=== PATIENT | female | born 1950 | race Caucasian/White ===

== ENCOUNTER 2022-03-23 14:49 | Observation (INO) | payer OTHER ==
[2022-03-23 15:09] VITALS: BMI 27.4
[2022-03-23 16:23] LABS: BASO % 0.7 % (0-2.0); HEMATOCRIT 35.8 % (32.4-45.2); HEMOGLOBIN 12.2 GM/dL (10.7-15.3); LYMPH % 30.2 % (8-40); MCH 30.8 pg (25.7-33.7); MEAN CELL VOLUME 90.7 fl (80-96); MEAN PLT VOLUME 7.4 fl (7.5-11.1); MONO % 4.9 % (3.8-10.2); NEUT % 61.2 % (42.8-82.8); PLATELET COUNT 207 10^3/uL (134-434); RBC 3.95 M/mm3 (3.60-5.2); RDW 13.6 % (11.6-15.6); WHITE BLOOD COUNT 5.4 K/mm3 (4.0-10.0)
[2022-03-23 16:43] LABS: CALCIUM 8.6 mg/dL (8.5-10.1)
[2022-03-23 16:44] LABS: ALBUMIN 3.4 g/dl (3.4-5.0); BLOOD UREA NITROGEN 16.5 mg/dL (7-18)
[2022-03-23 16:47] LABS: CREATININE 0.6 mg/dL (0.55-1.3)
[2022-03-23 16:48] LABS: BILIRUBIN,TOTAL 0.5 mg/dL (0.2-1); TOT PROT 6.8 g/dl (6.4-8.2)
[2022-03-23 18:18] LABS: N-TERMINAL BNP 249.4 pg/ml (5-125)
[2022-03-23] MEDS ORDERED: LEVOTHYROXINE NA 50 MCG TABLET (FP) PO ONE (18:36)
[2022-03-23] MEDS ORDERED: HYDROCHLOROTHIAZIDE 25 MG TABLET (FP) PO ONE (18:36)
[2022-03-23] MEDS ORDERED: CITALOPRAM HYDROBROMIDE 20 MG TABLET PO ONE (18:38)
[2022-03-23] MEDS ORDERED: HYDROCHLOROTHIAZIDE 25 MG TABLET (FP) ONE (18:46)
[2022-03-23] MEDS ORDERED: LEVOTHYROXINE NA 50 MCG TABLET (FP) ONE (18:46)
[2022-03-23] MEDS ORDERED: CITALOPRAM HYDROBROMIDE 10 MG TABLET ONE (18:46)
[2022-03-23 21:04] LABS: MAGNESIUM 1.9 mg/dL (1.8-2.4)
[2022-03-23 21:07] LABS: PHOSPHOROUS 3.2 mg/dL (2.5-4.9)
[2022-03-24] MEDS ORDERED: LEVOTHYROXINE NA 50 MCG TABLET (FP) ONE (06:10)
[2022-03-24] MEDS ORDERED: LEVOTHYROXINE NA 50 MCG TABLET (FP) PO SCH ×2 (07:00)
[2022-03-24 07:24] VITALS: TEMP 97.9
[2022-03-24 08:13] LABS: BASO % 1.2 % (0-2.0); EOS % 6.7 % (0-4.5); HEMATOCRIT 34.9 % (32.4-45.2); HEMOGLOBIN 11.9 GM/dL (10.7-15.3); LYMPH % 35.8 % (8-40); MCH 30.7 pg (25.7-33.7); MEAN CELL VOLUME 90.4 fl (80-96); MEAN PLT VOLUME 8.2 fl (7.5-11.1); MONO % 7.3 % (3.8-10.2); PLATELET COUNT 202 10^3/uL (134-434); RBC 3.86 M/mm3 (3.60-5.2); RDW 13.4 % (11.6-15.6); WHITE BLOOD COUNT 5.5 K/mm3 (4.0-10.0)
[2022-03-24 08:14] LABS: ALBUMIN 3.2 g/dl (3.4-5.0); BLOOD UREA NITROGEN 13.5 mg/dL (7-18); CALCIUM 8.6 mg/dL (8.5-10.1)
[2022-03-24 08:15] LABS: MAGNESIUM 2.1 mg/dL (1.8-2.4)
[2022-03-24 08:17] LABS: CREATININE 0.6 mg/dL (0.55-1.3); PHOSPHOROUS 3.6 mg/dL (2.5-4.9)
[2022-03-24 08:18] LABS: BILIRUBIN,TOTAL 0.7 mg/dL (0.2-1)
[2022-03-24 08:19] LABS: TOT PROT 6.4 g/dl (6.4-8.2)
[2022-03-24] MEDS ORDERED: FUROSEMIDE 40 MG TABLET (FP) PO SCH ×2 (09:55→14:00)
[2022-03-24] MEDS ORDERED: FLUTICASONE PROP 0.05% 16 GM NASAL SPRAY NS SCH (10:00)
[2022-03-24] MEDS ORDERED: ENOXAPARIN NA (PORCINE) 40 MG/0.4 ML DISP.SYRIN SQ SCH (10:00)
[2022-03-24] MEDS ORDERED: CITALOPRAM HYDROBROMIDE 20 MG TABLET PO SCH (10:00)
[2022-03-24] MEDS ORDERED: HYDROCHLOROTHIAZIDE 25 MG TABLET (FP) PO SCH (10:00)
[2022-03-24] MEDS ORDERED: POTASSIUM CHLORIDE TABS 20 MEQ TABLET.ER (FP) PO SCH (10:00)
[2022-03-24] MEDS ORDERED: POTASSIUM CHLORIDE TABS 20 MEQ TABLET.ER (FP) PO ONE ×3 (10:53→13:32)
[2022-03-24] MEDS ORDERED: ENOXAPARIN NA (PORCINE) 40 MG/0.4 ML DISP.SYRIN SQ ONE (10:53)
[2022-03-24] MEDS ORDERED: SODIUM CHLORIDE NASAL SPRAY 44 ML BOTTLE NS PRN (12:54)
[2022-03-24 14:05] VITALS: BP 125/62; PULSE 56
[2022-03-24] MEDS ORDERED: ATORVASTATIN CA 40 MG TABLET (FP) PO SCH ×2 (22:00)
[2022-03-24] MEDS ORDERED: ATORVASTATIN CA 20 MG TABLET (FP) PO SCH (22:00)
[2022-03-25] MEDS ORDERED: ASPIRIN COATED 81 MG TABLET.EC PO SCH (10:00)
[2022-03-25] MEDS ORDERED: FUROSEMIDE 40 MG TABLET (FP) PO SCH (10:00)
[2022-03-25] MEDS ORDERED: FUROSEMIDE 20 MG TABLET (FP) PO SCH ×2 (10:00)
== END 2022-03-24 14:07 | disposition home or self-care (01) ==
LOC: JER 14:49 → JERBED 17:14
PROVIDERS: ADMIT Internal Medicine; ATTEND Internal Medicine
PROC: 3E023GC Introduction of Other Therapeutic Substance into Muscle, Percutaneous Approach (ICD-10-PCS; principal; 2022-03-23)
DX: K58.9 Irritable bowel syndrome, unspecified (principal); F32.A Depression, unspecified; I10 Essential (primary) hypertension; R22.40 Localized swelling, mass and lump, unspecified lower limb; Z29.8 Encounter for other specified prophylactic measures; R07.9 Chest pain, unspecified; E03.9 Hypothyroidism, unspecified; Z86.16 Personal history of COVID-19; Z88.8 Allergy status to other drugs, medicaments and biological substances
CPT/HCPCS: 0241U-QW; 36415; 71045-TC-FY; 80053; 80061; 83036; 83735; 83880; 84100; 84443; 84484; 85025; 93005; 93010; 96372; 99285-25; C9803-CS; G0378; U0003; U0005